=== PATIENT | male | born 1985 | race African-American/Black ===

== ENCOUNTER 2023-12-21 23:22 | Inpatient (IN) | payer SELFPAY ==
[2023-12-22 00:38] LABS: BASO % 1.5 % (0-2.0); EOS % 4.7 % (0-4.5); HEMATOCRIT 19.8 % (35.4-49); HEMOGLOBIN 7.1 GM/dL (11.7-16.9); LYMPH % 24.5 % (8-40); MCH 31.6 pg (25.7-33.7); MEAN CELL VOLUME 87.8 fl (80-96); MEAN PLT VOLUME 9.6 fl (7.5-11.1); MONO % 16.1 % (3.8-10.2); NEUT % 53.2 % (42.8-82.8); PLATELET COUNT 331 10^3/uL (134-434); RBC 2.26 M/mm3 (4.00-5.60); RDW 24.4 % (11.9-15.9); WHITE BLOOD COUNT 14.4 K/mm3 (4.0-10.0)
[2023-12-22 00:44] LABS: INR 1.5 (0.83-1.09); PROTHROMBIN TIME (PATIENT) 16.7 SEC (9.7-13.0)
[2023-12-22 00:46] LABS: ACTIVATED PTT 44.8 SECONDS (25.2-36.5)
[2023-12-22 01:01] LABS: ALBUMIN 2.7 g/dl (3.4-5.0); BLOOD UREA NITROGEN 6.5 mg/dL (7-18)
[2023-12-22 01:04] LABS: CREATININE 0.7 mg/dL (0.55-1.3)
[2023-12-22 01:06] LABS: BILIRUBIN,TOTAL 8.6 mg/dL (0.2-1); TOT PROT 7.9 g/dl (6.4-8.2)
[2023-12-22] MEDS ORDERED: ACETAMINOPHEN INJECTION 100 ML ONE (01:20)
[2023-12-22] MEDS ORDERED: MAG HYDROX/AL HYDROX/SIMETH 30 ML UNIT-DOSE CUP ONE (01:21)
[2023-12-22] MEDS: MAG HYDROX/AL HYDROX/SIMETH 30 ML UNIT-DOSE CUP PO ONE (01:38)
[2023-12-22] MEDS: FAMOTIDINE 20 MG/50 ML IVPB 20 MG/50 ML MG IVPB ONE (01:38)
[2023-12-22] MEDS: ACETAMINOPHEN 1000 MG/100 ML BAG IVPB ONE (01:38)
[2023-12-22] MEDS ORDERED: morphine SULFATE 4 MG/ML VIAL ONE (02:39)
[2023-12-22] MEDS ORDERED: PIPERACILLIN/TAZOB 4.5 GM 4.5 GM/100 ML BAG IVPB ONE (02:39)
[2023-12-22] MEDS: PIPERACILLIN/TAZOB 4.5 GM 4.5 GM in DEXTROSE 5%-WATER 100 ML IVPB ONE (02:58)
[2023-12-22] MEDS ORDERED: ACETAMINOPHEN 1000 MG/100 ML BAG IVPB PRN ×2 (03:03→03:06)
[2023-12-22] MEDS: morphine CARPU-JECT 4 MG/1 ML DISP.SYRIN IVPUSH ONE (03:08)
[2023-12-22] MEDS: LACTATED RINGERS SOLUTION 1,000 ML/1,000 ML INFUS.BAG IV SCH ×3 (03:08→17:31)
[2023-12-22 03:50] LABS: EPI CELLS 1 /uL (0-25.1); HYALINE CASTS 1 /uL (0-3.1); URINE APPEARANCE CLEAR; URINE BACTERIA 10 /uL (0-1359); URINE BILIRUBIN 2+ (NEGATIVE); URINE COLOR DK YELLOW; URINE GLUCOSE (UA) NEGATIVE (NEGATIVE); URINE KETONE NEGATIVE (NEGATIVE); URINE LEUK ESTERASE TRACE (NEGATIVE); URINE NITRITE NEGATIVE (NEGATIVE); URINE PROTEIN NEGATIVE (NEGATIVE); URINE RBC 27 /uL (0-23.9); URINE WBC 1 /uL (0-25.8)
[2023-12-22 04:11] LABS: ANISOCYTOSIS 2+; MACROCYTOSIS 0; SICKELED CELLS 1+
[2023-12-22 07:06] LABS: BASO % 1.1 % (0-2.0); EOS % 4.2 % (0-4.5); HEMATOCRIT 18.1 % (35.4-49); LYMPH % 39.5 % (8-40); MCH 31.4 pg (25.7-33.7); MCHC 35.1 g/dl (32.0-35.9); MEAN CELL VOLUME 89.3 fl (80-96); MEAN PLT VOLUME 10.3 fl (7.5-11.1); MONO % 14.4 % (3.8-10.2); NEUT % 40.8 % (42.8-82.8); PLATELET COUNT 284 10^3/uL (134-434); RBC 2.02 M/mm3 (4.00-5.60); RDW 23.6 % (11.9-15.9); WHITE BLOOD COUNT 14.9 K/mm3 (4.0-10.0)
[2023-12-22 07:24] LABS: POTASSIUM 4.1 mmol/L (3.5-5.1)
[2023-12-22 07:30] LABS: ALBUMIN 2.4 g/dl (3.4-5.0); BLOOD UREA NITROGEN 5.8 mg/dL (7-18); CALCIUM 8.4 mg/dL (8.5-10.1); MAGNESIUM 1.7 mg/dL (1.8-2.4)
[2023-12-22 07:32] LABS: CREATININE 0.5 mg/dL (0.55-1.3); PHOSPHOROUS 3.6 mg/dL (2.5-4.9)
[2023-12-22 07:34] LABS: BILIRUBIN,TOTAL 7.2 mg/dL (0.2-1); TOT PROT 7.1 g/dl (6.4-8.2)
[2023-12-22 07:38] LABS: HEMOGLOBIN 6.3 GM/dL (11.7-16.9)
[2023-12-22] MEDS ORDERED: MORPHINE SULFATE 2 MG/ML SYRINGE ONE ×2 (08:00→13:37)
[2023-12-22] MEDS: MORPHINE SULFATE 2 MG/ML SYRINGE IVPUSH PRN (08:00)
[2023-12-22] MEDS ORDERED: PIPERACILLIN/TAZOB 3.375 GM 3.375 GM/50 ML BAG IVPB ONE (09:45)
[2023-12-22] MEDS ORDERED: FOLIC ACID 1 MG TABLET (FP) ONE (09:45)
[2023-12-22] MEDS: HYDROXYUREA 500 MG CAPSULE PO SCH (09:47)
[2023-12-22] MEDS: FOLIC ACID 1 MG TABLET (FP) PO SCH (09:47)
[2023-12-22] MEDS: PIPERACILLIN/TAZOB 3.375 GM 3.375 GM in DEXTROSE 5%-WATER - 50 ML IVPB SCH (09:47)
[2023-12-22] MEDS ORDERED: PATIENT'S OWN MEDICATION (NON-FORMULARY) (Oxycodone Hcl [Oxycodone Hcl] 10 MG Tablet) PO SCH (10:00)
[2023-12-22 17:02] VITALS: BMI 20.9
[2023-12-22] MEDS: MAGNESIUM 1GM/D5W 100ML - 100 ML IVPB IVPB ONE (17:31)
[2023-12-23 10:24] LABS: HEMATOCRIT 28.8 % (35.4-49); HEMOGLOBIN 9.9 GM/dL (11.7-16.9); LYMPH % 31.7 % (8-40); MCH 30.9 pg (25.7-33.7); MCHC 34.5 g/dl (32.0-35.9); MEAN CELL VOLUME 89.5 fl (80-96); MEAN PLT VOLUME 10.5 fl (7.5-11.1); MONO % 12.9 % (3.8-10.2); NEUT % 50.4 % (42.8-82.8); PLATELET COUNT 335 10^3/uL (134-434); RBC 3.22 M/mm3 (4.00-5.60); RDW 20.9 % (11.9-15.9); WHITE BLOOD COUNT 10.5 K/mm3 (4.0-10.0)
[2023-12-23 10:49] LABS: CALCIUM 8.5 mg/dL (8.5-10.1)
[2023-12-23 10:50] LABS: ALBUMIN 2.7 g/dl (3.4-5.0); BLOOD UREA NITROGEN 6.5 mg/dL (7-18)
[2023-12-23 10:53] LABS: CREATININE 0.6 mg/dL (0.55-1.3)
[2023-12-23 10:54] LABS: BILIRUBIN,TOTAL 8.9 mg/dL (0.2-1)
[2023-12-23] MEDS: ACETAMINOPHEN 1000 MG/100 ML BAG IVPB SCH (11:26)
[2023-12-23] MEDS: PIPERACILLIN/TAZOB 4.5 GM 4.5 GM in DEXTROSE 5%-WATER 100 ML IVPB SCH (14:00)
[2023-12-23 14:31] LABS: BILIRUBIN,DIRECT 5.2 mg/dL (0.0-0.2)
[2023-12-23] MEDS: morphine SULFATE 4 MG/ML VIAL IVPUSH PRN (17:09)
[2023-12-23] MEDS: PIPERACILLIN/TAZOB 3.375 GM 3.375 GM in DEXTROSE 5%-WATER - 50 ML IVPB SCH (19:59)
[2023-12-23 23:38] LABS: URINE AMPHETAMINES NEGATIVE (NEGATIVE); URINE BARBITURATES NEGATIVE (NEGATIVE); URINE BENZODIAZEPINES NEGATIVE (NEGATIVE)
[2023-12-23 23:39] LABS: COCAINE, UR NEGATIVE (NEGATIVE); METHADONE, UR NEGATIVE (NEGATIVE); PHENCYCLIDINE,URINE NEGATIVE (NEGATIVE)
[2023-12-23 23:41] LABS: OPIATES, URI POSITIVE (NEGATIVE)
[2023-12-24] MEDS: CALCIUM CARBONATE 650 MG TABLET PO ONE (06:21)
[2023-12-24 10:08] LABS: BASO % 1.3 % (0-2.0); EOS % 5.3 % (0-4.5); HEMATOCRIT 27.1 % (35.4-49); HEMOGLOBIN 9.4 GM/dL (11.7-16.9); LYMPH % 33.8 % (8-40); MCH 31.4 pg (25.7-33.7); MCHC 34.8 g/dl (32.0-35.9); MEAN CELL VOLUME 90.2 fl (80-96); MEAN PLT VOLUME 10.9 fl (7.5-11.1); MONO % 9.9 % (3.8-10.2); NEUT % 49.7 % (42.8-82.8); PLATELET COUNT 280 10^3/uL (134-434); RBC 3.01 M/mm3 (4.00-5.60); RDW 20.7 % (11.9-15.9); WHITE BLOOD COUNT 10.4 K/mm3 (4.0-10.0)
[2023-12-24 10:12] LABS: INR 1.52 (0.83-1.09); PROTHROMBIN TIME (PATIENT) 17.3 SEC (9.7-13.0)
[2023-12-24 10:27] LABS: POTASSIUM 4.1 mmol/L (3.5-5.1)
[2023-12-24 10:33] LABS: CALCIUM 8.3 mg/dL (8.5-10.1)
[2023-12-24 10:34] LABS: ALBUMIN 2.5 g/dl (3.4-5.0); BLOOD UREA NITROGEN 6.2 mg/dL (7-18)
[2023-12-24 10:37] LABS: CREATININE 0.6 mg/dL (0.55-1.3)
[2023-12-24 10:39] LABS: BILIRUBIN,TOTAL 7.5 mg/dL (0.2-1); TOT PROT 7.6 g/dl (6.4-8.2)
[2023-12-24] MEDS ORDERED: MIDAZOLAM HCL 2 MG/2 ML SINGLE DOSE VIAL ONE (12:57)
[2023-12-24] MEDS: INDOMETHACIN 50 MG RECTAL SUPPOSITORY PR ONE (20:02)
[2023-12-24] MEDS: PANTOPRAZOLE 40 MG TABLET PO SCH (21:18)
[2023-12-24] MEDS: INDOMETHACIN 50 MG RECTAL SUPPOSITORY PR SCH (21:25)
[2023-12-25 09:52] VITALS: RESP 20
[2023-12-25] MEDS: ACETAMINOPHEN 500 MG TABLET (FP) PO ONE (11:14)
[2023-12-25 12:11] LABS: HGB SOLUBILITY Positive (Negative)
[2023-12-25 13:39] VITALS: BP 104/63; PULSE 50; TEMP 98
== END 2023-12-25 14:53 | disposition left against medical advice (07) ==
LOC: JER 23:22 → JERBED 12-22 02:42 → J8W 12-22 15:10
PROVIDERS: ADMIT Internal Medicine; ATTEND Nurse Practitioner Acute Care
PROC: 30233N1 Transfusion of Nonautologous Red Blood Cells into Peripheral Vein, Percutaneous Approach (ICD-10-PCS; 2023-12-22)
PROC: 0DB98ZX Excision of Duodenum, Via Natural or Artificial Opening Endoscopic, Diagnostic (ICD-10-PCS; principal; 2023-12-24 13:00)
PROC: 0DB78ZX Excision of Stomach, Pylorus, Via Natural or Artificial Opening Endoscopic, Diagnostic (ICD-10-PCS; 2023-12-24 13:00)
DX: K80.00 Calculus of gallbladder with acute cholecystitis without obstruction (principal); D57.1 Sickle-cell disease without crisis; R79.89 Other specified abnormal findings of blood chemistry; K26.9 Duodenal ulcer, unspecified as acute or chronic, without hemorrhage or perforation; K25.9 Gastric ulcer, unspecified as acute or chronic, without hemorrhage or perforation; R17 Unspecified jaundice
CPT/HCPCS: 36415; 36430; 71045-TC-FY; 74177-TC; 74181-TC; 76705-TC; 80053; 80307; 81003; 82248; 82607; 82728; 82977; 83010; 83021; 83516; 83540; 83550; 83615; 83690; 83735; 84100; 85025; 85045; 85610; 85660; 85730; 86038; 86704; 86708; 86803; 86900; 87086; 87340; 87517; 88305-TC; 88341-TC; 88342-TC; 93005; 93010; 99285-25; J0131; J8999; P9058